=== PATIENT | female | born 1995 | race Caucasian/White ===

== ENCOUNTER 2018-09-26 20:44 | Emergency (ER) | payer BC, OTHER ==
--- NOTE | 2018-09-26 22:15 | EDM.PDOC ---
<Nicci Hall - Last Filed: 09/26/18 23:41> ED HPI GENERAL MEDICAL PROBLEM - General Chief Complaint: DEVOPS ENGINEER Problem Stated Complaint: PAIN 13 WKS FIVE DAYS Time Seen by Provider: 09/26/18 21:00 - History of Present Illness INITIAL COMMENTS - FREE TEXT/NARRATIVE: This is Dr. Hall dictating addendum note as I have assumed care of this case at 10:30 PM. I reviewed all lab tests which are all within normal limits as well as the pelvic ultrasound and the abdominal ultrasound. The pelvic ultrasound shows a live intrauterine at 13 weeks 4 days with a good heart rate of 151 and a small blas-gestational bleed. The patient has not had any vaginal bleeding but she is aware of these ultrasound findings and will be more aware of these symptoms. The abdominal ultrasound limited does not reveal any abnormalities of the gallbladder or the right upper quadrant. I discussed this case with Dr. Abdi at 2340pm and she agrees with symptomatic care. The patient said she had some indigestion so I gave her some IV Pepcid as well as some oral Tylenol for dull headache. On my reevaluation as I was discussing the imaging results and lab tests reveals a very nontender right upper quadrant with minimal tenderness on deep palpation and no tympany on percussion. The patient is aware that it contacted Dr. Abdi in that she will follow-up in their clinic as needed. Dr. Abdi is agreeable with this plan. - Related Data Allergies Allergy/AdvReac Type Severity Reaction Status Date / Time varicella virus vaccine live Allergy Rash Verified 09/26/18 21:00 Home Meds: Home Meds Docusate Sodium [Colace] 1 cap PO DAILY 09/26/18 [History] #103/Iron Fumarate/Fa [ ] 1 cap PO DAILY 09/26/18 [ History] ED ROS GENERAL - Review of Systems Review Of Systems: ROS reveals no pertinent complaints other than HPI. ED EXAM, GI/ABD - Physical Exam Exam: See Below Course - Vital Signs Last Recorded V/S: Last Vital Signs Temp 37.0 C 09/26/18 20:44 Pulse 78 09/26/18 23:14 Resp 17 09/26/18 23:14 BP 110/67 09/26/18 23:14 Pulse Ox 100 09/26/18 23:14 - Orders/Labs/Meds Labs: Laboratory Tests 09/26/18 09/26/18 09/26/18 Range/Units 21:28 21:28 21:28 WBC 11.93 H (4.0-11.0) K/uL RBC 3.75 L (4.30-5.90) M/uL Hgb 11.7 L (12.0-16.0) g/dL Hct 34.0 L (36.0-46.0) % MCV 90.7 (80.0-98.0) fL MCH 31.2 (27.0-32.0) pg MCHC 34.4 (31.0-37.0) g/dL RDW Std Deviation 43.7 (28.0-62.0) fl RDW Coeff of Olu 13 (11.0-15.0) % Plt Count 258 (150-400) K/uL MPV 10.00 (7.40-12.00) fL Neut % (Auto) 67.0 (48.0-80.0) % Lymph % (Auto) 26.4 (16.0-40.0) % [place]morton % (Auto) 5.4 (0.0-15.0) % Eos % (Auto) 1.0 (0.0-7.0) % Baso % (Auto) 0.2 (0.0-1.5) % Neut # (Auto) 8.0 H (1.4-5.7) K/uL Lymph # (Auto) 3.2 H (0.6-2.4) K/uL [place] # (Auto) 0.7 (0.0-0.8) K/uL Eos # (Auto) 0.1 (0.0-0.7) K/uL Baso # (Auto) 0.0 (0.0-0.1) K/uL Nucleated RBC % 0.0 /100WBC Nucleated RBCs # 0 K/uL Sodium 137 (136-145) mmol/L Potassium 3.4 L (3.5-5.1) mmol/L Chloride 104 (98-107) mmol/L Carbon Dioxide 20.3 L (21.0-32.0) mmol/L BUN 10 (7.0-18.0) mg/dL Creatinine 0.7 (0.6-1.0) mg/dL Est Cr Clr Drug Dosing 107.01 mL/min Estimated GFR (MDRD) > 60.0 ml/min Glucose 123 H (74-106) mg/dL Calcium 8.4 L (8.5-10.1) mg/dL Total Bilirubin 0.2 (0.2-1.0) mg/dL AST 8 L (15-37) IU/L ALT 12 L (14-63) IU/L Alkaline Phosphatase 34 L (46-116) U/L Total Protein 6.9 (6.4-8.2) g/dL Albumin 3.0 L (3.4-5.0) g/dL Globulin 3.9 (2.6-4.0) g/dL Albumin/Globulin Ratio 0.8 L (0.9-1.6) Lipase 99 (73-393) U/L HCG, Quant 07309.0 mIU/mL Urine Color Urine Appearance Urine pH (5.0-8.0) Ur Specific Rodessa (1.001-1.035) Urine Protein (NEGATIVE) mg/dL Urine Glucose (UA) (NEGATIVE) mg/dL Urine Ketones (NEGATIVE) mg/dL Urine Occult Blood (NEGATIVE) Urine Nitrite (NEGATIVE) Urine Bilirubin (NEGATIVE) Urine Urobilinogen (<2.0) EU/dL Ur Leukocyte Esterase (NEGATIVE) Urine HCG, Qual (NEGATIVE) 09/26/18 09/26/18 Range/Units 21:30 21:30 WBC (4.0-11.0) K/uL RBC (4.30-5.90) M/uL Hgb (12.0-16.0) g/dL Hct (36.0-46.0) % MCV (80.0-98.0) fL MCH (27.0-32.0) pg MCHC (31.0-37.0) g/dL RDW Std Deviation (28.0-62.0) fl RDW Coeff of Olu (11.0-15.0) % Plt Count (150-400) K/uL MPV (7.40-12.00) fL Neut % (Auto) (48.0-80.0) % Lymph % (Auto) (16.0-40.0) % [place]morton % (Auto) (0.0-15.0) % Eos % (Auto) (0.0-7.0) % Baso % (Auto) (0.0-1.5) % Neut # (Auto) (1.4-5.7) K/uL Lymph # (Auto) (0.6-2.4) K/uL Th[place]morton # (Auto) (0.0-0.8) K/uL Eos # (Auto) (0.0-0.7) K/uL Baso # (Auto) (0.0-0.1) K/uL Nucleated RBC % /100WBC Nucleated RBCs # K/uL Sodium (136-145) mmol/L Potassium (3.5-5.1) mmol/L Chloride (98-107) mmol/L Carbon Dioxide (21.0-32.0) mmol/L BUN (7.0-18.0) mg/dL Creatinine (0.6-1.0) mg/dL Est Cr Clr Drug Dosing mL/min Estimated GFR (MDRD) ml/min Glucose (74-106) mg/dL Calcium (8.5-10.1) mg/dL Total Bilirubin (0.2-1.0) mg/dL AST (15-37) IU/L ALT (14-63) IU/L Alkaline Phosphatase (46-116) U/L Total Protein (6.4-8.2) g/dL Albumin (3.4-5.0) g/dL Globulin (2.6-4.0) g/dL Albumin/Globulin Ratio (0.9-1.6) Lipase (73-393) U/L HCG, Quant mIU/mL Urine Color YELLOW Urine Appearance CLEAR Urine pH 7.5 (5.0-8.0) Ur Specific [place] 1.020 (1.001-1.035) Urine Protein NEGATIVE (NEGATIVE) mg/dL Urine Glucose (UA) NEGATIVE (NEGATIVE) mg/dL Urine Ketones NEGATIVE (NEGATIVE) mg/dL Urine Occult Blood NEGATIVE (NEGATIVE) Urine Nitrite NEGATIVE (NEGATIVE) Urine Bilirubin NEGATIVE (NEGATIVE) Urine Urobilinogen 0.2 (<2.0) EU/dL Ur Leukocyte Esterase NEGATIVE (NEGATIVE) Urine HCG, Qual POSITIVE (NEGATIVE) Meds: Medications Discontinued Medications Generic Name Dose Route Start Last Admin Trade Name Freq PRN Reason Stop Dose Admin Acetaminophen 650 mg 09/26/18 23:17 09/26/18 23:24 Tylenol PO 05/08/19 23:18 650 mg NOW ONE Administration Famotidine 20 mg 09/26/18 23:17 09/26/18 23:25 Pepcid IVPUSH 09/26/18 23:18 20 mg ONETIME ONE Administration Sodium Chloride 1,000 mls @ 999 mls/hr 09/26/18 21:01 09/26/18 22:27 Normal Saline IV 09/26/18 22:01 999 mls/hr BOLUS ONE Administration Departure - Departure Time of Disposition: 23:42 Disposition: Home, Self-Care 01 Condition: Good Clinical Impression: Second trimester , Right upper quadrant pain - Discharge Information Instructions: Abdominal Pain During , [id number], Second Trimester of , [id number] Referrals: PCP,None [Primary Care Provider] - Forms: ED Department Discharge Additional Instructions: The following information is given to patients seen in the emergency department who are being discharged to home. This information is to outline your options for follow-up care. We provide all patients seen in our emergency department with a follow-up referral. The need for follow-up, as well as the timing and circumstances, are variable depending upon the specifics of your emergency department visit. If you don't have a primary care physician on staff, we will provide you with a referral. We always advise you to contact your personal physician following an emergency department visit to inform them of the circumstance of the visit and for follow-up with them and/or the need for any referrals to a consulting specialist. The emergency department will also refer you to a specialist when appropriate. This referral assures that you have the opportunity for followup care with a specialist. All of these measure are taken in an effort to provide you with optimal care, which includes your followup. Under all circumstances we always encourage you to contact your private physician who remains a resource for coordinating your care. When calling for followup care, please make the office aware that this follow-up is from your recent emergency room visit. If for any reason you are refused follow-up, please contact the [facility] emergency department at and ask to speak to the emergency department charge nurse. [address] [address] ED low-fat diet and push hydration. Use [id number] Tylenol for pain management and please contact the clinic in the morning to schedule follow-up appointment as we discussed. Return to ER as needed and as discussed. Pelvic rest for the next 5-7 days for pelvic ultrasound findings as we discussed which currently are asymptomatic but which need to be followed in the clinic. <Thelma Goldsmith - Last Filed: 09/27/18 10:23> ED HPI GENERAL MEDICAL PROBLEM - General Source of Information: Reports: Patient History Limitations: Reports: No Limitations - History of Present Illness INITIAL COMMENTS - FREE TEXT/NARRATIVE: HISTORY AND PHYSICAL: History of present illness: Patient is a 23-year-old female presents to the ED today for concern of right upper quadrant pain 2 days. Patient rates her pain a 6-7 out of 10. Patient states the pain initially was coming and going but over the past 24 hours has been constant. Patient states she has taken Tylenol because she is without relief of symptoms. Patient states she is approximately 13 weeks gestation and is following along with [facility] with Dr. eric. Patient states she had called Dr. Eric's office today with told her to coming to the ED if symptoms were to persist. Patient states she's had a decrease in appetite and feels nauseous but has not vomited. Patient denies any cramping or vaginal discharge/bleeding. Patient denies fever, chills, chest pain, shortness of breath, or cough. Denies headache, neck stiff ness, change in vision, syncope, or near syncope. Denies diarrhea, constipation, or dysuria. Has not noted any blood in urine or stool. Patient has been eating and drinking appropriately prior to onset of symptoms. Review of systems: As per history of present illness and below otherwise all systems reviewed and negative. Past medical history: As per history of present illness and as reviewed below otherwise noncontributory. Surgical history: As per history of present illness and as reviewed below otherwise noncontributory. Social history: See social history for further information Family history: As per history of present illness and as reviewed below otherwise noncontributory. Physical exam: General: Patient is alert, oriented, and in no acute distress. Patient sitting comfortably on exam table. HEENT: Atraumatic, normocephalic, pupils equal and reactive bilaterally, negative for conjunctival pallor or scleral icterus, mucous membranes moist, TMs normal bilaterally, throat clear, neck supple, nontender, trachea midline. No drooling or trismus noted. No meningeal signs. No hot potato voice noted. Lungs: Clear to auscultation, breath sounds equal bilaterally, chest nontender. Heart: S1S2, regular rate and rhythm without overt murmur Abdomen: Severe pain to palpation of the right upper quadrant with guarding. Soft, nondistended. Negative for masses or hepatosplenomegaly. Negative for costovertebral tenderness. Pelvis: Stable nontender. Genitourinary: Deferred. Rectal: Deferred. Skin: Intact, warm, dry. No lesions or rashes noted. Extremities: Atraumatic, negative for cords or calf pain. Neurovascular unremarkable. Neuro: Awake, alert, oriented. Cranial nerves II through XII unremarkable. Cerebellum unremarkable. Motor and sensory unremarkable throughout. Exam nonfocal. Notes: Dr. Hall has assumed care of patient will follow all remaining diagnostics and disposition. Diagnostics: CBC, CMP, UA, urine hCG, hCG Quant, first trimester ultrasound, right upper quadrant ultrasound, lipase Therapeutics: Saline Prescription: Impression: RUQ pain First trimester Plan: Definitive disposition and diagnosis as appropriate pending reevaluation and review of above. 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 ED EXAM, GI/ABD - Physical Exam Exam: See Below (See dictation)
--- NOTE | 2018-09-26 22:26 | US ---
INDICATION: , abdominal pain TECHNIQUE: Ultrasound OB pelvis transabdominal. Real-time edmonds-scale imaging of the fetus was performed with static images saved for review. COMPARISON: None FINDINGS: Sonographic imaging demonstrates a single living intrauterine gestation. Fetus demonstrates a regular cardiac rate of 151 beats per minute. Fetus has a cephalic orientation. The placenta lies anterior. Hypoechoic collection adjacent to the placenta measuring 2.7 x 1.6 x 2.5 centimeters. Amniotic fluid volume appears normal. Cervix appears long and closed on transabdominal imaging. Clinical age is 13 weeks 4 days (CHAPIN 03/30/2019 based on LMP). The following biometric measurements were obtained: Biparietal diameter: 2.6 centimeters corresponding to 14 weeks 4 days. Head circumference: 9.1 centimeters corresponding to 14 weeks 1 day. Abdominal circumference: 7.4 centimeters corresponding to 13 weeks 6 days. Femur length: 1.1 centimeter corresponding to 13 weeks 3 days. The composite ultrasound gestational age is calculated at 14 weeks 0 days. The weight is estimated at 81 grams, the 39th percentile. Maternal right ovary measures 3.4 x 2.1 x 2.4 centimeters. Maternal left ovary measures 2.7 x 1.6 x 2.6 centimeters. Blood flow seen within both ovaries. IMPRESSION.: 1. Single live intrauterine gestation with a clinical age of 13 weeks 4 days which is within standard deviation of the sonographic age. 2. Perigestational bleed measuring 2.7 x 1.6 x 2.5 centimeters. Dictated by Bautista Dunn MD @ Sep 26 2018 10:19PM Signed by Dr. Bautista Dunn @ Sep 26 2018 10:25PM
[2018-09-26] MEDS: Sodium Chloride 0.9% 1,000 ML IV ONE (22:27)
[2018-09-26 22:31] LABS: CHLORIDE,CL 104 mmol/L (98-107); SODIUM,NA 137 mmol/L (136-145)
--- NOTE | 2018-09-26 23:04 | US ---
HISTORY: Abdominal pain for 1 day. COMPARISON: None available of this gestation. TECHNIQUE: Ultrasound examination of the is performed with transabdominal technique. FINDINGS: A single intrauterine gestation is seen in cephalic presentation with regular cardiac activity at 151 beats per minute. The placenta is anterior and is free of the cervical os. The placental grade is I and the amniotic fluid volume is normal. There is a small heterogeneous hypoechoic region located along the inferior left placenta consistent with a subchorionic hemorrhage, measuring 2.7 x 1.6 x 2.5 centimeters. BPD: 2.6 cm 14 weeks 4 days HC: 9.2 cm 14 weeks 1 day AC: 7.4 cm 13 weeks 6 days FL: 1.1 cm 13 weeks 3 days The estimated age by ultrasound is 14 weeks 0 days, with an estimated date of delivery of 03/27/2019. This correlates well with the clinical age of 13 weeks 4 days. The FL/AC ratio of 15.5 is below bottom normal at 20.0. The rest of the ultrasound ratios are normal. The estimated weight is 81 grams which is at the 39th percentile based on the clinical dates The fetus is too young to permit and anatomic survey. IMPRESSION: Single intrauterine gestation in cephalic presentation with regular cardiac activity. Estimated gestational age is 14 weeks 0 days. Possible small subchorionic hemorrhage located along the left inferior placenta. Dictated by Kevin King MD @ Sep 26 2018 10:57PM Signed by Dr. Kevin King @ Sep 26 2018 11:03PM
[2018-09-26 23:15] VITALS: BP 110/67
[2018-09-26] MEDS: Acetaminophen 325 MG Tab PO ONE (23:24)
[2018-09-26] MEDS: Famotidine 20 MG/2 ML SDV IVPUSH ONE (23:25)
== END 2018-09-26 23:59 | disposition home or self-care (01) ==
LOC: MW.ED 20:44
DX: O99.89 Other specified diseases and conditions complicating pregnancy, childbirth and the puerperium (principal); R10.11 Right upper quadrant pain; Z3A.13 13 weeks gestation of pregnancy; Z88.7 Allergy status to serum and vaccine
CPT/HCPCS: 36415; 76705; 76801; 80053; 81003; 81025; 83690; 84702; 85025; 96361; 96374; 99284; A9270; J3490; J7040

== ENCOUNTER 2019-03-22 07:17 | Inpatient (IN) | payer BC ==
[2019-03-22] MEDS ORDERED: Methylergonovine 0.2 MG/1 ML Amp IM PRN (17:32)
[2019-03-22] MEDS ORDERED: Lidocaine 1% 50 ML MDV INJECT PRN (17:32)
[2019-03-22] MEDS ORDERED: Ondansetron 4 MG/2 ML SDV IVPUSH PRN (17:32)
[2019-03-22] MEDS ORDERED: Sodium Chloride 0.9% 2.5 ML Syringe FLUSH PRN (17:32)
[2019-03-22] MEDS ORDERED: Sodium Chloride 0.9% 10 ML Syringe FLUSH PRN (17:32)
[2019-03-22] MEDS ORDERED: Nalbuphine 10 MG/1 ML Vial IVPUSH PRN (17:32)
[2019-03-22] MEDS ORDERED: Sodium Chloride 0.9% 10 ML SDV IV PRN (17:32)
[2019-03-22] MEDS ORDERED: Carboprost Tromethamine 250 MCG/1 ML Amp IM PRN (17:32)
[2019-03-22] MEDS ORDERED: Water For Irrigation,Sterile 1,000 ML Container IRR PRN (17:32)
[2019-03-22] MEDS ORDERED: Terbutaline 1 MG/ML SDV SUBCUT PRN (17:32)
[2019-03-22] MEDS ORDERED: Tranexamic Acid 1,000 MG in Sodium Chloride 0.9% 100 ML IV PRN (17:32)
[2019-03-22] MEDS ORDERED: Misoprostol 200 MCG Tab PO PRN (17:32)
[2019-03-22] MEDS ORDERED: Misoprostol 25 MCG (1/4 of 100 MCG) Tab VAG PRN ×2 (17:32)
[2019-03-22] MEDS ORDERED: Oxytocin/0.9 % Sodium Chloride 30 UNIT/500 ML BAG IV SCH ×2 (17:45)
[2019-03-22] MEDS: Lactated Ringers 1,000 ML IV SCH ×2 (18:15→23:50)
[2019-03-23] MEDS: Butorphanol 1 MG/ML SDV IVPUSH PRN ×3 (00:58→04:26)
[2019-03-23] MEDS ORDERED: Butorphanol 1 MG/ML SDV IVPUSH PRN (06:27)
[2019-03-23] MEDS: Lactated Ringers 1,000 ML IV SCH (06:31)
[2019-03-23] MEDS ORDERED: Acetaminophen/oxyCODONE 325-5 MG Tab ONE (07:30)
[2019-03-23] MEDS ORDERED: Lanolin 100% Cream 7 GM Tube TOP PRN (07:56)
[2019-03-23] MEDS ORDERED: Witch Hazel Medicated Pads 40/Jar TOP PRN (07:56)
[2019-03-23] MEDS ORDERED: oxyCODONE 5 MG Tab PO PRN (07:56)
[2019-03-23] MEDS ORDERED: Bisacodyl 10 MG Supp RECTAL PRN (07:56)
[2019-03-23] MEDS ORDERED: Benzocaine/Menthol 20%-0.5% Spray 78 GM Cannister TOP PRN (07:56)
--- NOTE | 2019-03-23 08:05 | PCM.OPNOTE ---
- General Post-Op/Procedure Note Date of Surgery/Procedure: 03/23/19 Operative Procedure(s): Spontaneous vaginal delivery. Repair of second degree perineal laceration Findings: Live female infant, Apgars 9/9, weight 3890g, cord gases pending Pre Op Diagnosis: 23yo at 39w0d with induction of labor. History of shoulder dystocia Post-Op Diagnosis: 23yo s/p spontaneous vaginal delivery. Second degree perineal laceration Anesthesia Technique: Other (see below) (IV Stadol) Primary Surgeon: Zakiya Jackson District Sales Coordinator: Catia Foss Pathology: Placenta, cord gases, cord blood EBL in mLs: 300 Complications: None Condition: Good
[2019-03-23] MEDS: Docusate Sodium 100 MG Cap PO PRN (08:54)
--- NOTE | 2019-03-23 09:25 | OR ---
SURGEON: Zakiya Jackson MD DATE OF PROCEDURE: 03/23/2019 PREOPERATIVE DIAGNOSES: 1. 23-year-old , at 39 weeks and 0 days gestation with induction of labor. 2. History of shoulder dystocia. POSTOPERATIVE DIAGNOSES: 1. 23-year-old , status post precipitous spontaneous vaginal delivery. 2. Second-degree perineal laceration. OPERATIVE PROCEDURE: 1. Precipitous spontaneous vaginal delivery. 2. Repair of second-degree perineal laceration. PRIMARY SURGEON: Zakiya Jackson M.D. PSYCHIATRIC RN: Catia Foss, medical student. ANESTHESIA: IV Stadol. FINDINGS: Live female in cephalic presentation. score 9 and 9 at 1 and 5 minutes respectively. Weight 3890 g. Nuchal cord x1. Cord gases pending. PATHOLOGY: Placenta, cord gases, cord blood. ESTIMATED BLOOD LOSS: 300 mL. COMPLICATIONS: None. DESCRIPTION OF PROCEDURE: The patient presented to Labor and Delivery at 38 weeks and 6 days' gestation for planned induction of labor due to history of shoulder dystocia and suspected ehgzv-igs-[id number]-age fetus. Induction of labor began with Cytotec. After 1 dose of Cytotec, the patient was nathan every 30 seconds to 2 minutes. The decision was made to begin Pitocin to continue induction of labor. The patient progressed to 5 to 6 cm, followed quickly by 8 cm. Spontaneous rupture of membranes occurred while the patient was sitting up on the toilet, clear fluid was noted. The fetus quickly delivered after spontaneous rupture of membranes. The patient progressed to complete cervical dilation without epidural. She delivered a live female infant, score 9 and 9 at 1 and 5 minutes respectively, weight 3890 g. The head was delivered followed by the remainder of body, without difficulty in delivering the shoulders. A nuchal cord x1 was reduced after delivery of the body. The infant was placed on the maternal abdomen. At this time, I presented to Labor and Delivery. I facilitated delivery of the placenta using the Pereyra-Bain maneuver. I inspected the perineum and a second-degree perineal laceration was noted. This was infiltrated with 1% lidocaine without epinephrine. This was then repaired with 3-0 Vicryl in a running fashion. The fundus was firm below the umbilicus. Scant bleeding was noted. The patient and baby tolerated the delivery well. EMIR / ZAKIA /[id number] WENDI
[2019-03-23] MEDS: Ibuprofen 800 MG Tab PO PRN ×2 (12:14→19:23)
[2019-03-23] MEDS: Acetaminophen 500 MG Tab PO PRN (16:04)
[2019-03-24] MEDS: Ibuprofen 800 MG Tab PO PRN (03:03)
[2019-03-24] MEDS: Docusate Sodium 100 MG Cap PO PRN (07:43)
[2019-03-24] MEDS: Acetaminophen 500 MG Tab PO PRN (07:43)
--- NOTE | 2019-03-24 08:36 | PCM.PNPP ---
- General Info Date of Service: 03/24/19 Admission Dx/Problem (Free Text): Patient without complaints this morning. Functional Status: Reports: Pain Controlled, Tolerating Diet, Ambulating, Urinating - Review of Systems General: Reports: No Symptoms HEENT: Reports: No Symptoms Pulmonary: Reports: No Symptoms Cardiovascular: Reports: No Symptoms Gastrointestinal: Reports: No Symptoms Genitourinary: Reports: No Symptoms Musculoskeletal: Reports: No Symptoms Skin: Reports: No Symptoms Neurological: Reports: No Symptoms Psychiatric: Reports: No Symptoms - Patient Data Vital Signs - Most Recent: Last Vital Signs Temp 36.7 C 03/24/19 03:09 Pulse 64 03/24/19 03:09 Resp 16 03/24/19 03:09 BP 118/73 03/24/19 03:09 Pulse Ox 99 03/24/19 03:09 Weight - Most Recent: 87.09 kg Lab Results - Last 24 Hours: Laboratory Results - last 24 hr 03/24/19 Range/Units 07:21 Hgb 10.7 L (12.0-16.0) g/dL Hct 33.3 L (36.0-46.0) % Med Orders - Current: Current Medications Acetaminophen (Tylenol Extra Strength) 1,000 mg PO Q6H PRN PRN Reason: Pain Last Admin: 03/24/19 07:43 Dose: 1,000 mg Benzocaine/Menthol (Dermoplast Pain Relief 20%-0.5% Brixey) 78 gm TOP ASDIRECTED PRN PRN Reason: Perineal Comfort Measure Last Admin: 03/23/19 08:55 Dose: 1 can Bisacodyl (Dulcolax) 10 mg RECTAL ONETIME PRN PRN Reason: Constipation Butorphanol Tartrate (Stadol) 1 mg IVPUSH Q1H PRN PRN Reason: Pain Last Admin: 03/23/19 04:26 Dose: 1 mg Butorphanol Tartrate (Stadol) 1 mg IVPUSH Q1H PRN PRN Reason: Pain Last Admin: 03/23/19 06:39 Dose: 1 mg Carboprost Tromethamine (Hemabate Ds) 250 mcg IM ASDIRECTED PRN PRN Reason: Post Hemorrhage Docusate Sodium (Colace) 100 mg PO BID PRN PRN Reason: Constipation Last Admin: 03/24/19 07:43 Dose: 100 mg Emollient Ointment (Lansinoh Hpa) 0 gm TOP ASDIRECTED PRN PRN Reason: Sore Nipples Last Admin: 03/23/19 08:54 Dose: 7 gram Lactated Ringer's (Ringers, Lactated) 1,000 mls @ 150 mls/hr IV ASDIRECTED MACK Last Admin: 03/23/19 06:31 Dose: 150 mls/hr Oxytocin/Sodium Chloride (Oxytocin 30 Unit/500 Ml-Ns) 30 unit in 500 mls @ 999 mls/hr IV TITRATE MACK Oxytocin/Sodium Chloride (Oxytocin 30 Unit/500 Ml-Ns) 30 unit in 500 mls @ 2 mls/hr IV TITRATE MACK; Protocol Last Titration: 03/23/19 05:40 Dose: 6 munits/min, 6 mls/hr Tranexamic Acid 1,000 mg/ (Sodium Chloride) 110 mls @ 660 mls/hr IV ONETIME PRN PRN Reason: Bleeding Ibuprofen (Motrin) 800 mg PO Q8H PRN PRN Reason: Pain Last Admin: 03/24/19 03:03 Dose: 800 mg Lidocaine HCl (Xylocaine 1%) 50 ml INJECT ONETIME PRN PRN Reason: Laceration repair Last Admin: 03/23/19 07:39 Dose: 50 ml Methylergonovine Maleate (Methergine) 0.2 mg IM ASDIRECTED PRN PRN Reason: Post Hemorrhage Misoprostol (Cytotec) 200 mcg PO ONETIME PRN PRN Reason: Post Hemorrhage Misoprostol (Cytotec) 25 mcg VAG ONETIME PRN PRN Reason: Cervical Ripening Last Admin: 03/22/19 18:23 Dose: 25 mcg Misoprostol (Cytotec) 25 mcg VAG Q4H PRN PRN Reason: Cervical Ripening Nalbuphine HCl (Nubain) 10 mg IVPUSH Q1H PRN PRN Reason: Pain (severe 7-10) Ondansetron HCl (Zofran) 4 mg IVPUSH Q4H PRN PRN Reason: Nausea/Vomiting Oxycodone HCl (Oxycodone) 5 mg PO Q2H PRN PRN Reason: Pain Sodium Chloride (Saline Flush) 10 ml FLUSH ASDIRECTED PRN PRN Reason: Keep Vein Open Sodium Chloride (Saline Flush) 2.5 ml FLUSH ASDIRECTED PRN PRN Reason: Keep Vein Open Sodium Chloride (Normal Saline) 10 ml IV ASDIRECTED PRN PRN Reason: IV Use Sterile Water (Sterile Water For Irrigation) 1,000 ml IRR ASDIRECTED PRN PRN Reason: delivery Last Admin: 03/23/19 07:39 Dose: 1,000 ml Terbutaline Sulfate (Brethine) 0.25 mg SUBCUT ASDIRECTED PRN PRN Reason: Tacysystole Witch Carolyn (Tucks) 1 pad TOP ASDIRECTED PRN PRN Reason: comfort care Last Admin: 03/23/19 08:54 Dose: 1 tub Discontinued Medications Oxycodone/Acetaminophen (Percocet 325-5 Mg) Confirm Administered Dose 2 tab .ROUTE .STK-MED ONE Stop: 03/23/19 07:31 Last Admin: 03/23/19 07:37 Dose: 2 tab - Infant Interaction Disposition, : [place] in Room with Family Infant Interaction: Holding Feeding: Attempted ; Nursed Fair/Poor Support Person: Significant Other - Recovery Exam Fundal Tone: Firm Fundal Level: At Umbilicus Fundal Placement: Midline Lochia Amount: Small Lochia Color: Rubra/Red Bladder Status: Voiding - Exam General: Alert, Oriented Neck: Supple Lungs: Clear to Auscultation, Normal Respiratory Effort Cardiovascular: Regular Rate, Regular Rhythm GI/Abdominal Exam: Soft, Non-Tender Extremities: Normal Inspection, No Pedal Edema Skin: Warm, Dry, Intact Neurological: No New Focal Deficit Psy/Mental Status: Alert, Normal Affect, Normal Mood - Problem List & Annotations (1) Vaginal delivery SNOMED Code(s): 330047762 Code(s): O80 - ENCOUNTER FOR FULL-TERM UNCOMPLICATED DELIVERY Status: Acute Current Visit: No - Problem List Review Problem List Initiated/Reviewed/Updated: Yes - My Orders Last 24 Hours: My Active Orders 03/24/19 08:31 Ready for Discharge [RC] PER UNIT ROUTINE - Assessment Assessment:: 23yo s/p spontaneous vaginal delivery, PPD#1 - Plan Plan:: Patient doing well, desires discharge home today. Reviewed discharge instructions. Follow-up in 6 weeks at visit.
[2019-03-24 09:09] VITALS: BP 119/73; PULSE 71
== END 2019-03-24 11:06 | disposition home or self-care (01) | DRG 560 ==
LOC: MW.OB 07:17 → OBSVTOIN 03-23 07:17 → MW.OB 03-23 23:53
PROVIDERS: ADMIT Obstetrics & Gynecology; ATTEND Obstetrics & Gynecology
PROC: 10E0XZZ Delivery of Products of Conception, External Approach (ICD-10-PCS; principal; 2019-03-23)
PROC: 3E0P7VZ Introduction of Hormone into Female Reproductive, Via Natural or Artificial Opening (ICD-10-PCS; 2019-03-23)
PROC: 0KQM0ZZ Repair Perineum Muscle, Open Approach (ICD-10-PCS; 2019-03-23)
PROC: 3E033VJ Introduction of Other Hormone into Peripheral Vein, Percutaneous Approach (ICD-10-PCS; 2019-03-23)
DX: O62.3 Precipitate labor (principal); O69.81X0 Labor and delivery complicated by cord around neck, without compression, not applicable or unspecified; O70.1 Second degree perineal laceration during delivery; Z3A.38 38 weeks gestation of pregnancy; Z37.0 Single live birth
CPT/HCPCS: 36415; 59025; 59409; 82803; 85014; 85018; 85027; 86593; 86850; 86900; 86901; A9270-GY; J0595; J2001; J2590; J7120

== ENCOUNTER 2020-11-13 20:36 | Emergency (ER) | payer BC ==
--- NOTE | 2020-11-13 21:10 | PCM.SN.2 ---
- Free Text/Narrative Note: EKG performed at 2053 hrs. sinus tachycardia heart rate 103 CO 148 QT duration 436 [place] 63 QRS is late transition to R wave. Normal biatrial enlargement on the P wave. No prior for comparison. Impression no obvious injury.
[2020-11-13] MEDS ORDERED: Sodium Chloride 0.9% 1,000 ML IV ONE (21:13)
[2020-11-13] MEDS ORDERED: Sodium Chloride 0.9% 500 ML IV SCH (21:15)
--- NOTE | 2020-11-13 21:26 | EDM.PDOC ---
ED HPI GENERAL MEDICAL PROBLEM - General Chief Complaint: Syncope Stated Complaint: LIGHT HEADED, FEELS LIKE SHE'S GOING TO PASS OUT Time Seen by Provider: 11/13/20 21:04 Source of Information: Reports: Patient History Limitations: Reports: No Limitations - History of Present Illness INITIAL COMMENTS - FREE TEXT/NARRATIVE: HISTORY AND PHYSICAL: History of present illness: Patient is a 25-year-old female who presents emergency room today with concern of near syncope that [place]. Patient states that she was chasing around her young child and when she bent over and stand up, states that she started feeling dizzy and lightheaded. Patient states that she sat down and ate food but did not have any improvement of symptoms. Patient states that she walked to the car with her children and drove here but states that the entire time she was lightheaded and states that she may be should not have drove. Patient states that currently she is feeling lightheaded and like she might pass out which is worse with sitting up or standing and improved with laying down. Patient denies complete syncope or head injury or loss of consciousness. Patient states that she was not riding any rides at the fair and had not been doing anything out of the ordinary. Patient does express nausea associated with the near syncope sensation. Patient denies any health history. Patient states she does have an IUD so does not believe to be . Patient denies fever, chills, chest pain, shortness of breath, or cough. Denies headache, neck stiff ness, change in vision, syncope. Denies vomiting, abdominal pain, diarrhea, constipation, or dysuria. Has not noted any blood in urine or stool. Patient has been eating and drinking appropriately. Review of systems: As per history of present illness and below otherwise all systems reviewed and negative. Past medical history: As per history of present illness and as reviewed below otherwise noncontributory. Surgical history: As per history of present illness and as reviewed below otherwise noncontributory. Social history: See social history for further information Family history: As per history of present illness and as reviewed below otherwise noncontributory. Physical exam: General: Patient is alert, oriented, and in no acute distress. Patient laying comfortably on exam table. Patient is noted to be tachycardic 112's on exam, otherwise vitally stable and reviewed by me. CHAKA: Atraumatic, normocephalic, pupils equal and reactive bilaterally, negative for conjunctival pallor or scleral icterus, mucous membranes moist, TMs normal bilaterally, throat clear, neck supple, nontender, trachea midline. No drooling or trismus noted. No meningeal signs. No hot potato voice noted. Lungs: Clear to auscultation, breath sounds equal bilaterally, chest nontender. Heart: S1S2, regular rate and rhythm without overt murmur Abdomen: Soft, nondistended, nontender. Negative for masses or hepatosplenomegaly. Negative for costovertebral tenderness. Pelvis: Stable nontender. Genitourinary: Deferred. Rectal: Deferred. Skin: Intact, warm, dry. No lesions or rashes noted. Extremities: Atraumatic, negative for cords or calf pain. Neurovascular unremarkable. Neuro: Awake, alert, oriented. Cranial nerves II through XII unremarkable. Cerebellum unremarkable. Motor and sensory unremarkable throughout. Exam nonfocal. Notes: Patient is a 25-year-old, otherwise healthy female, who presents to the ED today with concern of near syncope that started just prior to travel [place]. Upon arrival to the ED, patient is noted to be tachycardic 112's on exam, otherwise is vitally stable. When patient does sit up, her heart rate does go to 130s to 140s and expresses worsening of her near-syncope symptoms. Will obtain IV access and initiate a 20 cc/kg bolus of fluids, and obtain cardiac evaluation. See Dr. Garcia dictation for specific EKG interpretation. However, sinus tachycardia with a rate of 103 without signs of STEMI or ischemic changes. Mild derangements of CBC unremarkable. CMP shows a mild elevation of creatinine at 1.1 and a mild elevation of BUN at 19, otherwise mild derangements of CMP unremarkable. hCG negative. Troponin negative. Urinalysis is clear. Dr. Garcia has assumed care of patient and will follow remaining diagnostics including chest x-ray and reevaluation of patient and disposition. Diagnostics: EKG, CBC, CMP, UA, serum hCG, chest x-ray, troponin, orthostatic vitals Therapeutics: NS Prescription: Impression: Near syncope Dehydration Plan: Definitive disposition and diagnosis as appropriate pending reevaluation and review of above. - Related Data Allergies Allergy/AdvReac Type Severity Reaction Status Date / Time varicella virus vaccine live Allergy Rash Verified 11/13/20 20:55 Home Meds: Home Meds #103/Iron Fumarate/Fa [ ] 1 cap PO DAILY 09/26/18 [History] Ascorbate Calcium [Vitamin C] 1 tab PO DAILY 02/06/19 [History] Ergocalciferol (Vitamin D2) [Ergocalciferol] 0.5 applicful ASDIRECTED 02/06/19 [History] buPROPion HCL [Wellbutrin Xl] 1 tab PO DAILY 02/06/19 [History] Past Medical History - Past Health History Medical/Surgical History: Denies Medical/Surgical History HEENT History: Reports: None Cardiovascular History: Reports: None Respiratory History: Reports: Asthma Other Respiratory History: sports induced asthma in high school Gastrointestinal History: Reports: None Genitourinary History: Reports: [employer] History: Reports: Musculoskeletal History: Reports: None Neurological History: Reports: None Psychiatric History: Reports: Depression Endocrine/Metabolic History: Reports: None Hematologic History: Reports: None Immunologic History: Reports: None Oncologic (Cancer) History: Reports: None Dermatologic History: Reports: None - Infectious Disease History Infectious Disease History: Reports: None - Past Surgical History Head Surgeries/Procedures: Reports: None HEENT Surgical History: Reports: Oral Surgery Other HEENT Surgeries/Procedures: 2012 wisdom teeth Social & Family History - Family History Family Medical History: No Pertinent Family History - Tobacco Use Tobacco Use Status *Q: Never Tobacco User Second Hand Smoke Exposure: No - Caffeine Use Caffeine Use: Reports: None - Recreational Drug Use Recreational Drug Use: No ED ROS GENERAL - Review of Systems Review Of Systems: Comprehensive ROS is negative, except as noted in HPI. ED EXAM, GENERAL - Physical Exam Exam: See Below (see dictation) Course - Vital Signs Last Recorded V/S: Last Vital Signs Temp 98.1 F 11/14/20 00:34 Pulse 88 11/14/20 00:34 Resp 18 11/14/20 00:34 BP 111/65 11/14/20 00:34 Pulse Ox 98 11/14/20 00:34 Orthostatic Blood Pressure [ 123/78 Standing] Orthostatic Blood Pressure [ 123/78 Sitting] Orthostatic Blood Pressure [ 114/70 Supine] - Orders/Labs/Meds Labs: Laboratory Tests 11/13/20 11/13/20 11/13/20 Range/Units 20:50 20:50 20:50 WBC 9.27 (4.0-11.0) K/uL RBC 4.53 (4.30-5.90) M/uL Hgb 14.4 (12.0-16.0) g/dL Hct 41.4 (36.0-46.0) % MCV 91.4 (80.0-98.0) fL MCH 31.8 (27.0-32.0) pg MCHC 34.8 (31.0-37.0) g/dL RDW Std Deviation 42.7 (28.0-62.0) fl RDW Coeff of Olu 13 (11.0-15.0) % Plt Count 238 (150-400) K/uL MPV 10.20 (7.40-12.00) fL Neut % (Auto) 82.8 H (48.0-80.0) % Lymph % (Auto) 9.9 L (16.0-40.0) % [place] % (Auto) 6.8 (0.0-15.0) % Eos % (Auto) 0.4 (0.0-7.0) % Baso % (Auto) 0.1 (0.0-1.5) % Neut # (Auto) 7.7 H (1.4-5.7) K/uL Lymph # (Auto) 0.9 (0.6-2.4) K/uL [place] # (Auto) 0.6 (0.0-0.8) K/uL Eos # (Auto) 0.0 (0.0-0.7) K/uL Baso # (Auto) 0.0 (0.0-0.1) K/uL Sodium 138 (136-145) mmol/L Potassium 3.5 (3.5-5.1) mmol/L Chloride 102 (98-107) mmol/L Carbon Dioxide 23.6 (21.0-32.0) mmol/L BUN 19 H (7.0-18.0) mg/dL Creatinine 1.1 H (0.6-1.0) mg/dL Est Cr Clr Drug Dosing 66.92 mL/min Estimated GFR (MDRD) > 60.0 ml/min Glucose 106 (74-106) mg/dL Calcium 8.6 (8.5-10.1) mg/dL Total Bilirubin 0.3 (0.2-1.0) mg/dL AST 13 L (15-37) IU/L ALT 24 (14-63) IU/L Alkaline Phosphatase 65 (46-116) U/L Troponin I < 0.050 (0.000-0.056) ng/mL Total Protein 8.2 (6.4-8.2) g/dL Albumin 4.0 (3.4-5.0) g/dL Globulin 4.2 H (2.6-4.0) g/dL Albumin/Globulin Ratio 1.0 (0.9-1.6) HCG, Qual NEGATIVE (NEG) Urine Color Urine Appearance Urine pH (5.0-8.0) Ur Specific Challenge (1.001-1.035) Urine Protein (NEGATIVE) mg/dL Urine Glucose (UA) (NEGATIVE) mg/dL Urine Ketones (NEGATIVE) mg/dL Urine Occult Blood (NEGATIVE) Urine Nitrite (NEGATIVE) Urine Bilirubin (NEGATIVE) Urine Urobilinogen (<2.0) EU/dL Ur Leukocyte Esterase (NEGATIVE) 11/13/20 Range/Units 21:29 WBC (4.0-11.0) K/uL RBC (4.30-5.90) M/uL Hgb (12.0-16.0) g/dL Hct (36.0-46.0) % MCV (80.0-98.0) fL MCH (27.0-32.0) pg MCHC (31.0-37.0) g/dL RDW Std Deviation (28.0-62.0) fl RDW Coeff of Olu (11.0-15.0) % Plt Count (150-400) K/uL MPV (7.40-12.00) fL Neut % (Auto) (48.0-80.0) % Lymph % (Auto) (16.0-40.0) % [place] % (Auto) (0.0-15.0) % Eos % (Auto) (0.0-7.0) % Baso % (Auto) (0.0-1.5) % Neut # (Auto) (1.4-5.7) K/uL Lymph # (Auto) (0.6-2.4) K/uL [place] # (Auto) (0.0-0.8) K/uL Eos # (Auto) (0.0-0.7) K/uL Baso # (Auto) (0.0-0.1) K/uL Sodium (136-145) mmol/L Potassium (3.5-5.1) mmol/L Chloride (98-107) mmol/L Carbon Dioxide (21.0-32.0) mmol/L BUN (7.0-18.0) mg/dL Creatinine (0.6-1.0) mg/dL Est Cr Clr Drug Dosing mL/min Estimated GFR (MDRD) ml/min Glucose (74-106) mg/dL Calcium (8.5-10.1) mg/dL Total Bilirubin (0.2-1.0) mg/dL AST (15-37) IU/L ALT (14-63) IU/L Alkaline Phosphatase (46-116) U/L Troponin I (0.000-0.056) ng/mL Total Protein (6.4-8.2) g/dL Albumin (3.4-5.0) g/dL Globulin (2.6-4.0) g/dL Albumin/Globulin Ratio (0.9-1.6) HCG, Qual (NEG) Urine Color YELLOW Urine Appearance CLEAR Urine pH 6.0 (5.0-8.0) Ur Specific Challenge 1.025 (1.001-1.035) Urine Protein NEGATIVE (NEGATIVE) mg/dL Urine Glucose (UA) NEGATIVE (NEGATIVE) mg/dL Urine Ketones NEGATIVE (NEGATIVE) mg/dL Urine Occult Blood NEGATIVE (NEGATIVE) Urine Nitrite NEGATIVE (NEGATIVE) Urine Bilirubin NEGATIVE (NEGATIVE) Urine Urobilinogen 0.2 (<2.0) EU/dL Ur Leukocyte Esterase NEGATIVE (NEGATIVE) Meds: Medications Discontinued Medications Generic Name Dose Route Start Last Admin Trade Name Freq PRN Reason Stop Dose Admin Diazepam 2.5 mg 11/13/20 23:28 11/13/20 23:32 Diazepam 2 Mg Tab PO 11/13/20 23:29 2.5 mg ONETIME ONE Administration Sodium Chloride 1,000 mls @ 999 mls/hr 11/13/20 21:13 11/13/20 21:38 Normal Saline IV 11/13/20 22:13 999 mls/hr BOLUS ONE Administration Sodium Chloride 500 mls @ 300 mls/hr 11/13/20 21:15 11/13/20 22:57 Normal Saline IV 300 mls/hr STAT MACK Administration Ketorolac Tromethamine 15 mg 11/13/20 23:27 11/13/20 23:33 Ketorolac 30 Mg/Ml Sdv IVPUSH 11/13/20 23:28 15 mg ONETIME ONE Administration Departure - Departure Time of Disposition: 10:03 Disposition: Home, Self-Care 01 Clinical Impression: Dehydration, Orthostasis, Muscle contraction headache Back pain Qualifiers: Back pain location: low back pain Chronicity: acute Back pain laterality: unspecified Sciatica presence: without sciatica Qualified Code(s): M54.5 - Low back pain - Discharge Information Instructions: Orthostatic Hypotension, Acute Back Pain, Adult, Dehydration, Adult, [id number], General Headache Without Cause, [id number] Referrals: Moncho Michelle [Primary Care Provider] - Forms: ED Department Discharge Additional Instructions: [facility] - Primary Care [address] [place] [address] [place] [address] The following information is given to patients seen in the emergency department who are being discharged to home. This information is to outline your options for follow-up care. We provide all patients seen in our emergency department with a follow-up referral. The need for follow-up, as well as the timing and circumstances, are variable depending upon the specifics of your emergency department visit. If you don't have a primary care physician on staff, we will provide you with a referral. We always advise you to contact your personal physician following an emergency department visit to inform them of the circumstance of the visit and for follow-up with them and/or the need for any referrals to a consulting specialist. The emergency department will also refer you to a specialist when appropriate. This referral assures that you have the opportunity for follow-up care with a specialist. All of these measure are taken in an effort to provide you with optimal care, which includes your follow-up. Under all circumstances we always encourage you to contact your private physician who remains a resource for coordinating your care. When calling for follow-up care, please make the office aware that this follow-up is from your recent emergency room visit. If for any reason you are refused follow-up, please contact the [facility] Emergency Department at and asked to speak to the emergency department charge nurse. Sepsis Event Note (ED) - Evaluation Sepsis Screening Result: No Definite Risk - Focused Exam Vital Signs: Vital Signs Temp Pulse Resp BP Pulse Ox 11/14/20 00:34 98.1 F 88 18 111/65 98 11/13/20 23:17 98 18 104/62 98 11/13/20 22:30 102 H 20 103/72 98
[2020-11-13 21:35] LABS: BLOOD UREA NITROGEN,BUN 19 mg/dL (7.0-18.0); CARBON DIOXIDE,CO2 23.6 mmol/L (21.0-32.0); CHLORIDE,CL 102 mmol/L (98-107); GLUCOSE RANDOM 106 mg/dL (74-106); POTASSIUM,K 3.5 mmol/L (3.5-5.1); SODIUM,NA 138 mmol/L (136-145)
--- NOTE | 2020-11-13 22:11 | CR ---
INDICATION: Near syncope TECHNIQUE: Chest radiograph 1 view COMPARISON: 09/03/2009 FINDINGS: Mediastinum: The mediastinum is normal in appearance. New mild cardiac enlargement is present which may be accentuated by the portable technique. Lung: Both lungs are unremarkable in appearance. No sign of pleural effusion seen. No pneumothorax is identified. Bone and Soft tissue: Unremarkable for age. IMPRESSION: 1. New mild cardiac enlargement is present which may be accentuated by the portable technique. Dictated by Walter Chin MD @ 11/13/2020 10:09:16 PM Dictated by: Walter Chin MD @ 11/13/2020 22:09:19 (Electronically Signed)
[2020-11-13] MEDS ORDERED: Ketorolac 30 MG/ML SDV IVPUSH ONE (23:27)
[2020-11-13] MEDS ORDERED: Diazepam 2 MG Tab PO ONE (23:28)
--- NOTE | 2020-11-13 23:34 | EDM.PDOC ---
ED HPI GENERAL MEDICAL PROBLEM - General Chief Complaint: Syncope Stated Complaint: LIGHT HEADED, FEELS LIKE SHE'S GOING TO PASS OUT Time Seen by Provider: 11/13/20 21:04 Source of Information: Reports: Patient History Limitations: Reports: No Limitations - History of Present Illness INITIAL COMMENTS - FREE TEXT/NARRATIVE: HISTORY AND PHYSICAL: History of present illness: Patient is a 25-year-old female who presents emergency room today with concern of near syncope that [place]. Patient states that she was chasing around her young child and when she bent over and stand up, states that she started feeling dizzy and lightheaded. Patient states that she sat down and ate food but did not have any improvement of symptoms. Patient states that she walked to the car with her children and drove here but states that the entire time she was lightheaded and states that she may be should not have drove. Patient states that currently she is feeling lightheaded and like she might pass out which is worse with sitting up or standing and improved with laying down. Patient denies complete syncope or head injury or loss of consciousness. Patient states that she was not riding any rides at the fair and had not been doing anything out of the ordinary. Patient does express nausea associated with the near syncope sensation. Patient denies any health history. Patient states she does have an IUD so does not believe to be . Patient denies fever, chills, chest pain, shortness of breath, or cough. Denies headache, neck stiff ness, change in vision, syncope. Denies vomiting, abdominal pain, diarrhea, constipation, or dysuria. Has not noted any blood in urine or stool. Patient has been eating and drinking appropriately. Review of systems: As per history of present illness and below otherwise all systems reviewed and negative. Past medical history: As per history of present illness and as reviewed below otherwise noncontributory. Surgical history: As per history of present illness and as reviewed below otherwise noncontributory. Social history: See social history for further information Family history: As per history of present illness and as reviewed below otherwise noncontributory. Physical exam: General: Patient is alert, oriented, and in no acute distress. Patient laying comfortably on exam table. Patient is noted to be tachycardic 112's on exam, otherwise vitally stable and reviewed by me. CHAKA: Atraumatic, normocephalic, pupils equal and reactive bilaterally, negative for conjunctival pallor or scleral icterus, mucous membranes moist, TMs normal bilaterally, throat clear, neck supple, nontender, trachea midline. No drooling or trismus noted. No meningeal signs. No hot potato voice noted. Lungs: Clear to auscultation, breath sounds equal bilaterally, chest nontender. Heart: S1S2, regular rate and rhythm without overt murmur Abdomen: Soft, nondistended, nontender. Negative for masses or hepatosplenomegaly. Negative for costovertebral tenderness. Pelvis: Stable nontender. Genitourinary: Deferred. Rectal: Deferred. Skin: Intact, warm, dry. No lesions or rashes noted. Extremities: Atraumatic, negative for cords or calf pain. Neurovascular unremarkable. Neuro: Awake, alert, oriented. Cranial nerves II through XII unremarkable. Cerebellum unremarkable. Motor and sensory unremarkable throughout. Exam nonfocal. Notes: Patient is a 25-year-old, otherwise healthy female, who presents to the ED today with concern of near syncope that started just prior to travel [place]. Upon arrival to the ED, patient is noted to be tachycardic 112's on exam, otherwise is vitally stable. When patient does sit up, her heart rate does go to 130s to 140s and expresses worsening of her near-syncope symptoms. Will obtain IV access and initiate a 20 cc/kg bolus of fluids, and obtain cardiac evaluation. See Dr. Garcia dictation for specific EKG interpretation. However, sinus tachycardia with a rate of 103 without signs of STEMI or ischemic changes. Dr. Garcia has assumed care of patient and will follow remaining diagnostics and disposition Diagnostics: EKG, CBC, CMP, UA, serum hCG, chest x-ray, troponin, orthostatic vitals Therapeutics: NS Prescription: Impression: Near syncope Plan: Definitive disposition and diagnosis as appropriate pending reevaluation and review of above. [id number] the patient was turned over to me by the advanced practice practitioner. The patient has while in the emergency department developed a moderately severe headache that is all around the bifrontal area. She also has back pain in both lower thoracic and upper lumbar back in the paraspinous area bilaterally. She describes this is kidney pain. The patient has negative Brudzinski and Kernig sign and normal neurologic exam. She is not febrile. She is under a lot of stress according to the . I feel like she has muscle contraction headache. I will try therapy and if it works the patient can probably be discharged. Her dizziness is gone after hydration indicating she was dehydrated. - Related Data Allergies Allergy/AdvReac Type Severity Reaction Status Date / Time varicella virus vaccine live Allergy Rash Verified 11/13/20 20:55 Home Meds: Home Meds #103/Iron Fumarate/Fa [ ] 1 cap PO DAILY 09/26/18 [History] Ascorbate Calcium [Vitamin C] 1 tab PO DAILY 02/06/19 [History] Ergocalciferol (Vitamin D2) [Ergocalciferol] 0.5 applicful ASDIRECTED 02/06/19 [History] buPROPion HCL [Wellbutrin Xl] 1 tab PO DAILY 02/06/19 [History] Past Medical History - Past Health History Medical/Surgical History: Denies Medical/Surgical History HEENT History: Reports: None Cardiovascular History: Reports: None Respiratory History: Reports: Asthma Other Respiratory History: sports induced asthma in high school Gastrointestinal History: Reports: None Genitourinary History: Reports: STD ARTISAN PLASTERER History: Reports: Musculoskeletal History: Reports: None Neurological History: Reports: None Psychiatric History: Reports: Depression Endocrine/Metabolic History: Reports: None Hematologic History: Reports: None Immunologic History: Reports: None Oncologic (Cancer) History: Reports: None Dermatologic History: Reports: None - Infectious Disease History Infectious Disease History: Reports: None - Past Surgical History Head Surgeries/Procedures: Reports: None HEENT Surgical History: Reports: Oral Surgery Other HEENT Surgeries/Procedures: 2012 wisdom teeth Social & Family History - Family History Family Medical History: No Pertinent Family History - Tobacco Use Tobacco Use Status *Q: Never Tobacco User Second Hand Smoke Exposure: No - Caffeine Use Caffeine Use: Reports: None - Recreational Drug Use Recreational Drug Use: No ED ROS GENERAL - Review of Systems Review Of Systems: Comprehensive ROS is negative, except as noted in HPI. ED EXAM, GENERAL - Physical Exam Exam: See Below Free Text/Narrative:: HISTORY AND PHYSICAL: History of present illness: Patient is a 25-year-old female who presents emergency room today with concern of near syncope that [place]. Patient states that she was chasing around her young child and when she bent over and stand up, states that she started feeling dizzy and lightheaded. Patient states that she sat down and ate food but did not have any improvement of symptoms. Patient states that she walked to the car with her children and drove here but states that the entire time she was lightheaded and states that she may be should not have drove. Patient states that currently she is feeling lightheaded and like she might pass out which is worse with sitting up or standing and improved with laying down. Patient denies complete syncope or head injury or loss of consciousness. Patient states that she was not riding any rides at the fair and had not been doing anything out of the ordinary. Patient does express nausea associated with the near syncope sensation. Patient denies any health history. Patient states she does have an IUD so does not believe to be . Patient denies fever, chills, chest pain, shortness of breath, or cough. Denies headache, neck stiff ness, change in vision, syncope. Denies vomiting, abdominal pain, diarrhea, constipation, or dysuria. Has not noted any blood in urine or stool. Patient has been eating and drinking appropriately. Review of systems: As per history of present illness and below otherwise all systems reviewed and negative. Past medical history: As per history of present illness and as reviewed below otherwise noncontributory. Surgical history: As per history of present illness and as reviewed below otherwise non contributory. Social history: See social history for further information Family history: As per history of present illness and as reviewed below otherwise noncontributory. Physical exam: General: Patient is alert, oriented, and in no acute distress. Patient laying comfortably on exam table. Patient is noted to be tachycardic 112's on exam, otherwise vitally stable and reviewed by me. HEENT: Atraumatic, normocephalic, pupils equal and reactive bilaterally, negative for conjunctival pallor or scleral icterus, mucous membranes moist, TMs normal bilaterally, throat clear, neck supple, nontender, trachea midline. No drooling or trismus noted. No meningeal signs. No hot potato voice noted. Lungs: Clear to auscultation, breath sounds equal bilaterally, chest nontender. Heart: S1S2, regular rate and rhythm without overt murmur Abdomen: Soft, nondistended, nontender. Negative for masses or hepatosplenomegaly. Negative for costovertebral tenderness. Pelvis: Stable nontender. Genitourinary: Deferred. Rectal: Deferred. Skin: Intact, warm, dry. No lesions or rashes noted. Extremities: Atraumatic, negative for cords or calf pain. Neurovascular unremarkable. Neuro: Awake, alert, oriented. Cranial nerves II through XII unremarkable. Cerebellum unremarkable. Motor and sensory unremarkable throughout. Exam nonfocal. Notes: Patient is a 25-year-old, otherwise healthy female, who presents to the ED today with concern of near syncope that started just prior to travel [place]. Upon arrival to the ED, patient is noted to be tachycardic 112's on exam, otherwise is vitally stable. When patient does sit up, her heart rate does go to 130s to 140s and expresses worsening of her near-syncope symptoms. Will obtain IV access and initiate a 20 cc/kg bolus of fluids, and obtain cardiac evaluation. See Dr. Garcia dictation for specific EKG interpretation. However, sinus tachycardia with a rate of 103 without signs of STEMI or ischemic changes. Dr. Garcia has assumed care of patient and will follow remaining diagnostics and disposition Diagnostics: EKG, CBC, CMP, UA, serum hCG, chest x-ray, troponin, orthostatic vitals Therapeutics: NS Prescription: Impression: Near syncope Plan: Definitive disposition and diagnosis as appropriate pending reevaluation and review of above. Course - Vital Signs Text/Narrative:: 0024 hours the patient has mild headache but feels somewhat better. She has ondansetron at home. She request discharge and I feel it is comfortable. Last Recorded V/S: Last Vital Signs Temp 36.3 C 11/13/20 20:52 Pulse 98 11/13/20 23:17 Resp 18 11/13/20 23:17 BP 104/62 11/13/20 23:17 Pulse Ox 98 11/13/20 23:17 Orthostatic Blood Pressure [ 123/78 Standing] Orthostatic Blood Pressure [ 123/78 Sitting] Orthostatic Blood Pressure [ 114/70 Supine] - Orders/Labs/Meds Orders: Active Orders 24 hr Category Date Time Status Cardiac Monitoring [RC] . DIRECTED Care 11/13/20 21:13 Active EKG 12 Lead [EKG Documentation Completion] [RC] STAT Care 11/13/20 20:59 Active Orthostatic Vital Signs [RC] ASDIRECTED Care 11/13/20 21:14 Active Sodium Chloride 0.9% [Normal Saline] 500 ml Med 11/13/20 21:15 Active IV STAT Medication Orders Sodium Chloride (Normal Saline) 500 mls @ 300 mls/hr IV STAT MACK Last Admin: 11/13/20 22:57 Dose: 300 mls/hr Documented by: MARYBEL Labs: Laboratory Tests 11/13/20 11/13/20 11/13/20 Range/Units 20:50 20:50 20:50 WBC 9.27 (4.0-11.0) K/uL RBC 4.53 (4.30-5.90) M/uL Hgb 14.4 (12.0-16.0) g/dL Hct 41.4 (36.0-46.0) % MCV 91.4 (80.0-98.0) fL MCH 31.8 (27.0-32.0) pg MCHC 34.8 (31.0-37.0) g/dL RDW Std Deviation 42.7 (28.0-62.0) fl RDW Coeff of Olu 13 (11.0-15.0) % Plt Count 238 (150-400) K/uL MPV 10.20 (7.40-12.00) fL Neut % (Auto) 82.8 H (48.0-80.0) % Lymph % (Auto) 9.9 L (16.0-40.0) % [place] % (Auto) 6.8 (0.0-15.0) % Eos % (Auto) 0.4 (0.0-7.0) % Baso % (Auto) 0.1 (0.0-1.5) % Neut # (Auto) 7.7 H (1.4-5.7) K/uL Lymph # (Auto) 0.9 (0.6-2.4) K/uL [place] # (Auto) 0.6 (0.0-0.8) K/uL Eos # (Auto) 0.0 (0.0-0.7) K/uL Baso # (Auto) 0.0 (0.0-0.1) K/uL Sodium 138 (136-145) mmol/L Potassium 3.5 (3.5-5.1) mmol/L Chloride 102 (98-107) mmol/L Carbon Dioxide 23.6 (21.0-32.0) mmol/L BUN 19 H (7.0-18.0) mg/dL Creatinine 1.1 H (0.6-1.0) mg/dL Est Cr Clr Drug Dosing 66.92 mL/min Estimated GFR (MDRD) > 60.0 ml/min Glucose 106 (74-106) mg/dL Calcium 8.6 (8.5-10.1) mg/dL Total Bilirubin 0.3 (0.2-1.0) mg/dL AST 13 L (15-37) IU/L ALT 24 (14-63) IU/L Alkaline Phosphatase 65 (46-116) U/L Troponin I < 0.050 (0.000-0.056) ng/mL Total Protein 8.2 (6.4-8.2) g/dL Albumin 4.0 (3.4-5.0) g/dL Globulin 4.2 H (2.6-4.0) g/dL Albumin/Globulin Ratio 1.0 (0.9-1.6) HCG, Qual NEGATIVE (NEG) Urine Color Urine Appearance Urine pH (5.0-8.0) Ur Specific [place] (1.001-1.035) Urine Protein (NEGATIVE) mg/dL Urine Glucose (UA) (NEGATIVE) mg/dL Urine Ketones (NEGATIVE) mg/dL Urine Occult Blood (NEGATIVE) Urine Nitrite (NEGATIVE) Urine Bilirubin (NEGATIVE) Urine Urobilinogen (<2.0) EU/dL Ur Leukocyte Esterase (NEGATIVE) 11/13/20 Range/Units 21:29 WBC (4.0-11.0) K/uL RBC (4.30-5.90) M/uL Hgb (12.0-16.0) g/dL Hct (36.0-46.0) % MCV (80.0-98.0) fL MCH (27.0-32.0) pg MCHC (31.0-37.0) g/dL RDW Std Deviation (28.0-62.0) fl RDW Coeff of Olu (11.0-15.0) % Plt Count (150-400) K/uL MPV (7.40-12.00) fL Neut % (Auto) (48.0-80.0) % Lymph % (Auto) (16.0-40.0) % [place] % (Auto) (0.0-15.0) % Eos % (Auto) (0.0-7.0) % Baso % (Auto) (0.0-1.5) % Neut # (Auto) (1.4-5.7) K/uL Lymph # (Auto) (0.6-2.4) K/uL [place] # (Auto) (0.0-0.8) K/uL Eos # (Auto) (0.0-0.7) K/uL Baso # (Auto) (0.0-0.1) K/uL Sodium (136-145) mmol/L Potassium (3.5-5.1) mmol/L Chloride (98-107) mmol/L Carbon Dioxide (21.0-32.0) mmol/L BUN (7.0-18.0) mg/dL Creatinine (0.6-1.0) mg/dL Est Cr Clr Drug Dosing mL/min Estimated GFR (MDRD) ml/min Glucose (74-106) mg/dL Calcium (8.5-10.1) mg/dL Total Bilirubin (0.2-1.0) mg/dL AST (15-37) IU/L ALT (14-63) IU/L Alkaline Phosphatase (46-116) U/L Troponin I (0.000-0.056) ng/mL Total Protein (6.4-8.2) g/dL Albumin (3.4-5.0) g/dL Globulin (2.6-4.0) g/dL Albumin/Globulin Ratio (0.9-1.6) HCG, Qual (NEG) Urine Color YELLOW Urine Appearance CLEAR Urine pH 6.0 (5.0-8.0) Ur Specific [place] 1.025 (1.001-1.035) Urine Protein NEGATIVE (NEGATIVE) mg/dL Urine Glucose (UA) NEGATIVE (NEGATIVE) mg/dL Urine Ketones NEGATIVE (NEGATIVE) mg/dL Urine Occult Blood NEGATIVE (NEGATIVE) Urine Nitrite NEGATIVE (NEGATIVE) Urine Bilirubin NEGATIVE (NEGATIVE) Urine Urobilinogen 0.2 (<2.0) EU/dL Ur Leukocyte Esterase NEGATIVE (NEGATIVE) Meds: Medications Generic Name Dose Route Start Last Admin Trade Name Freq PRN Reason Stop Dose Admin Sodium Chloride 500 mls @ 300 mls/hr 11/13/20 21:15 11/13/20 22:57 Normal Saline IV 300 mls/hr STAT MACK Administration Discontinued Medications Generic Name Dose Route Start Last Admin Trade Name Freq PRN Reason Stop Dose Admin Diazepam 2.5 mg 11/13/20 23:28 11/13/20 23:32 Diazepam 2 Mg Tab PO 11/13/20 23:29 2.5 mg ONETIME ONE Administration Sodium Chloride 1,000 mls @ 999 mls/hr 11/13/20 21:13 11/13/20 21:38 Normal Saline IV 11/13/20 22:13 999 mls/hr BOLUS ONE Administration Ketorolac Tromethamine 15 mg 11/13/20 23:27 11/13/20 23:33 Ketorolac 30 Mg/Ml Sdv IVPUSH 11/13/20 23:28 15 mg ONETIME ONE Administration Departure - Departure Time of Disposition: 00:26 Disposition: Home, Self-Care 01 Condition: Good Clinical Impression: Dehydration, Orthostasis, Muscle contraction headache, Back pain - Discharge Information Instructions: Orthostatic Hypotension, Acute Back Pain, Adult, Dehydration, Adult, [id number], General Headache Without Cause, [id number] Referrals: Moncho Michelle [Primary Care Provider] - Forms: ED Department Discharge Additional Instructions: [facility] - Primary Care [address] [place] [id number] [id number] The following information is given to patients seen in the emergency department who are being discharged to home. This information is to outline your options for follow-up care. We provide all patients seen in our emergency department with a follow-up referral. The need for follow-up, as well as the timing and circumstances, are variable depending upon the specifics of your emergency department visit. If you don't have a primary care physician on staff, we will provide you with a referral. We always advise you to contact your personal physician following an emergency department visit to inform them of the circumstance of the visit and for follow-up with them and/or the need for any referrals to a consulting specialist. The emergency department will also refer you to a specialist when appropriate. This referral assures that you have the opportunity for follow-up care with a specialist. All of these measure are taken in an effort to provide you with optimal care, which includes your follow-up. Under all circumstances we always encourage you to contact your private physician who remains a resource for coordinating your care. When calling for follow-up care, please make the office aware that this follow-up is from your recent emergency room visit. If for any reason you are refused follow-up, please contact the [facility] Emergency Department at and asked to speak to the emergency department charge nurse. Sepsis Event Note (ED) - Evaluation Sepsis Screening Result: No Definite Risk - Focused Exam Vital Signs: Vital Signs Temp Pulse Resp BP Pulse Ox 11/13/20 23:17 98 18 104/62 98 11/13/20 22:30 102 H 20 103/72 98 11/13/20 21:42 97 18 114/70 98 11/13/20 20:52 36.3 C 112 H 18 117/75 98 - My Orders Last 24 Hours: My Active Orders 11/13/20 20:59 EKG 12 Lead [EKG Documentation Completion] [RC] STAT - Assessment/Plan Last 24 Hours: My Active Orders 11/13/20 20:59 EKG 12 Lead [EKG Documentation Completion] [RC] STAT
[2020-11-14 00:54] VITALS: BP 111/65; PULSE 88
== END 2020-11-14 00:34 | disposition home or self-care (01) ==
LOC: MW.ED 20:36
DX: E86.0 Dehydration (principal); R55 Syncope and collapse; R51.9 Headache, unspecified; M54.9 Dorsalgia, unspecified; J45.909 Unspecified asthma, uncomplicated; Z88.7 Allergy status to serum and vaccine; Z79.899 Other long term (current) drug therapy
CPT/HCPCS: 36415; 71045; 80053; 81003; 84484; 84703; 85025; 93005; 96374; 99284; A9270; J1885; J7030; J7040

== ENCOUNTER 2021-05-30 07:26 | Emergency (ER) | payer BC, OTHER ==
--- NOTE | 2021-05-30 07:53 | EDM.PDOC ---
ED HPI GENERAL MEDICAL PROBLEM - General Chief Complaint: Respiratory Problem Stated Complaint: COVID SYMPTOMS Time Seen by Provider: 05/30/21 07:37 - History of Present Illness INITIAL COMMENTS - FREE TEXT/NARRATIVE: History of present illness: [] Patient got sick yesterday. She has had Covid last year. She does not think he has Covid because of that. She is trying to get currently. She is not vaccinated. She has body aches cough phlegm. She has a sore throat. She does not have much sinus congestion. When she had Covid before she lost control of her bladder and that has not happened this time. Patient is almost certainly viral and not septic. Review of systems: As per history of present illness and below otherwise all systems reviewed and negative. Past medical history: As per history of present illness and as reviewed below otherwise noncontributory. Surgical history: As per history of present illness and as reviewed below otherwise noncontributory. Social history: No reported history of drug or alcohol abuse. Family history: As per history of present illness and as reviewed below otherwise noncontributory. Physical exam: Constitutional - well developed, well-nourished and in no acute distress HEENT - normocephalic, no evidence of trauma - external nose and mouth normal - no mass in neck and no JVD - mucosae moist EYES - full EOM, PERRL, no icterus - no evidence of inflammation, injection, or drainage Respiratory - no respiratory distress, equal bilateral expansion, lungs clear to auscultation and no abnormal lung sounds Cardiovascular - Regular Rhythm with S1 and S2 appreciated and no murmur, gallop or rub. GI - abdomen soft without distension or organomegaly - normal bowel sounds - no guard or rebound Musculoskeletal no gross deformity of long bones or joints - no tenderness, swelling or edema Neurologic - Alert and oriented times four - CN II-XII grossly intact - motor sensory and coordination symmetrically normal Psychiatric - appropriate mood and affect with normal thought content Hematologic - No petechiae or purpura - mucosa appropriate color and sclera not pale - normal nail bed color and refill Integument - no rash or evidence of trauma - normal turgor Diagnostics: [] Therapeutics: [] Impression: [] Plan: [] Definitive disposition and diagnosis as appropriate pending reevaluation and review of above. General body aches Pain Score (Numeric/FACES): 8 - Related Data Allergies Allergy/AdvReac Type Severity Reaction Status Date / Time varicella virus vaccine live Allergy Rash Verified 05/30/21 08:57 Home Meds: Home Meds Oseltamivir [Tamiflu] 75 mg PO BID 5 Days #10 cap 05/30/21 [Rx] Past Medical History - Past Health History Medical/Surgical History: Denies Medical/Surgical History HEENT History: Reports: None Cardiovascular History: Reports: None Respiratory History: Reports: Asthma Other Respiratory History: sports induced asthma in high school Gastrointestinal History: Reports: None Genitourinary History: Reports: [employer] History: Reports: Musculoskeletal History: Reports: None Neurological History: Reports: None Psychiatric History: Reports: Depression Endocrine/Metabolic History: Reports: None Hematologic History: Reports: None Immunologic History: Reports: None Oncologic (Cancer) History: Reports: None Dermatologic History: Reports: None - Infectious Disease History Infectious Disease History: Reports: None, Novel Coronavirus - Past Surgical History Head Surgeries/Procedures: Reports: None HEENT Surgical History: Reports: Oral Surgery Other HEENT Surgeries/Procedures: 2012 wisdom teeth Social & Family History - Family History Family Medical History: No Pertinent Family History - Caffeine Use Caffeine Use: Reports: Coffee, Energy Drinks - Recreational Drug Use Recreational Drug Use: No ED ROS GENERAL - Review of Systems Review Of Systems: Comprehensive ROS is negative, except as noted in HPI. ED EXAM, GENERAL - Physical Exam Exam: See Below Free Text/Narrative:: My physical exam is in the HPI Course - Vital Signs Last Recorded V/S: Last Vital Signs Temp 38.5 C H 05/30/21 08:54 Pulse 120 H 05/30/21 09:22 Resp 16 05/30/21 09:22 BP 116/70 05/30/21 09:22 Pulse Ox 99 05/30/21 09:22 - Orders/Labs/Meds Labs: Laboratory Tests 05/30/21 05/30/21 Range/Units 07:42 08:02 Urine HCG, Qual POSITIVE (NEGATIVE) Influenza Type A RNA POSITIVE H (NEGATIVE) Influenza Type B RNA NEGATIVE (NEGATIVE) SARS-CoV-2 RNA ([facility]) NEGATIVE (NEGATIVE) Meds: Medications Discontinued Medications Generic Name Dose Route Start Last Admin Trade Name Freq PRN Reason Stop Dose Admin Acetaminophen 1,000 mg 05/30/21 08:47 05/30/21 08:54 Acetaminophen 500 Mg Tab PO 05/30/21 08:48 1,000 mg ONETIME ONE Administration - Re-Assessments/Exams Free Text/Narrative Re-Assessment/Exam: 05/30/21 09:09 Literature reviewed and treatment with oseltamivir benefit outweighs risk for young person in first trimester. Patient agreed to take the medicine and prescription sent. Departure - Departure Time of Disposition: 09:09 Disposition: Home, Self-Care 01 Condition: Good Clinical Impression: Influenza A, - Discharge Information Prescriptions: Oseltamivir [Tamiflu] 75 mg PO BID 5 Days #10 cap Instructions: Influenza, Adult, [id number], and Influenza [facility] - Forms: ED Department Discharge Additional Instructions: Prescription for Tamiflu went to [facility] pharmacy. [facility] [address] [place] [address] [place] [address] [facility] [address] [place] [id number] [id number] The following information is given to patients seen in the emergency department who are being discharged to home. This information is to outline your options for follow-up care. We provide all patients seen in our emergency department with a follow-up referral. The need for follow-up, as well as the timing and circumstances, are variable depending upon the specifics of your emergency department visit. If you don't have a primary care physician on staff, we will provide you with a referral. We always advise you to contact your personal physician following an emergency department visit to inform them of the circumstance of the visit and for follow-up with them and/or the need for any referrals to a consulting specialist. The emergency department will also refer you to a specialist when appropriate. This referral assures that you have the opportunity for follow-up care with a specialist. All of these measure are taken in an effort to provide you with optimal care, which includes your follow-up. Under all circumstances we always encourage you to contact your private physician who remains a resource for coordinating your care. When calling for follow-up care, please make the office aware that this follow-up is from your recent emergency room visit. If for any reason you are refused follow-up, please contact the [facility] Emergency Department at and asked to speak to the emergency department charge nurse. Sepsis Event Note (ED) - Evaluation Sepsis Screening Result: Possible Sepsis Risk - Focused Exam Vital Signs: Vital Signs Temp Temp Pulse Resp BP Pulse Ox 05/30/21 09:22 120 H 16 116/70 99 05/30/21 08:54 38.5 C H 05/30/21 08:44 38.5 C H 120 H 16 118/64 99 05/30/21 07:36 38.4 C H 112 H 18 132/69 99
[2021-05-30 08:44] VITALS: PULSE 120
[2021-05-30] MEDS ORDERED: Acetaminophen 500 MG Tab PO ONE (08:47)
[2021-05-30 08:54] LABS: CORONAVIRUS COVID-19 NAA NEGATIVE (NEGATIVE); INFLUENZA A NAA POSITIVE (NEGATIVE); INFLUENZA B NAA NEGATIVE (NEGATIVE)
[2021-05-30 09:23] VITALS: BP 116/70
== END 2021-05-30 09:24 | disposition home or self-care (01) ==
LOC: MW.ED 07:26
DX: O99.511 Diseases of the respiratory system complicating pregnancy, first trimester (principal); J10.1 Influenza due to other identified influenza virus with other respiratory manifestations; Z20.822 Contact with and (suspected) exposure to COVID-19; Z3A.00 Weeks of gestation of pregnancy not specified
CPT/HCPCS: 0240U; 81025; 99283; A9270

== ENCOUNTER 2022-01-01 17:01 | Emergency (ER) | payer BC, OTHER ==
[2022-01-01 17:35] VITALS: BP 107/56; PULSE 106
[2022-01-01] MEDS ORDERED: oxyCODONE 5 MG Tab PO ONE (19:40)
[2022-01-01] MEDS ORDERED: Lidocaine 5% Oint 35.44 GM Tube TOP STA (19:42)
[2022-01-01] MEDS ORDERED: Lidocaine/Epineph/Tetracaine 3 ML Syringe ONE (19:59)
[2022-01-01] MEDS ORDERED: Bupivacaine 0.25%/EPINEPHrine 1:200,000 10 ML SDV INJECT STA (20:10)
[2022-01-01] MEDS ORDERED: Lidocaine 1% with EPINEPHrine 1:100,000 20 ML MDV INJECT ONE (20:29)
== END 2022-01-01 21:35 | disposition home or self-care (01) ==
LOC: MW.ED 17:01
DX: O22.43 Hemorrhoids in pregnancy, third trimester (principal); Z3A.34 34 weeks gestation of pregnancy; Z88.7 Allergy status to serum and vaccine; Z86.16 Personal history of COVID-19
CPT/HCPCS: 46320; 99282; A9270; 46083; 99284

== ENCOUNTER 2022-01-02 20:23 | Emergency (ER) | payer BC, OTHER ==
[2022-01-02] MEDS ORDERED: Bupivacaine 0.25% 10 ML SDV INJECT ONE (21:30)
[2022-01-02 21:52] VITALS: BP 137/70; PULSE 88
== END 2022-01-02 21:57 | disposition still patient (30) ==
LOC: MW.ED 20:23
DX: O22.43 Hemorrhoids in pregnancy, third trimester (principal); O26.893 Other specified pregnancy related conditions, third trimester; R06.02 Shortness of breath; R42 Dizziness and giddiness; Z88.7 Allergy status to serum and vaccine; Z3A.34 34 weeks gestation of pregnancy
CPT/HCPCS: 36415; 59025; 80053; 81003; 85025; 93005; 99282; A9270; J3490; J7120; 99283

== ENCOUNTER 2022-01-05 15:02 | Observation (INO) | payer BC, OTHER ==
[2022-01-05] MEDS ORDERED: Sodium Chloride 0.9% 10 ML Syringe FLUSH PRN (15:44)
[2022-01-05] MEDS ORDERED: Sodium Chloride 0.9% 2.5 ML Syringe FLUSH PRN (15:44)
[2022-01-05] MEDS ORDERED: Ondansetron 4 MG/2 ML SDV IVPUSH PRN (15:44)
[2022-01-05] MEDS ORDERED: diphenhydrAMINE 50 MG/ML SDV IVPUSH PRN (15:44)
[2022-01-05] MEDS ORDERED: Sodium Chloride 0.9% 20 ML SDV IV PRN (15:44)
[2022-01-05] MEDS: HYDROmorphone 1 MG/ML Syringe IVPUSH PRN ×4 (16:08→23:06)
[2022-01-05] MEDS: Sodium Chloride 0.9% 1,000 ML IV SCH (16:12)
[2022-01-05] MEDS: Polyethylene Glycol 3350 Powder 17 GM Packet PO SCH (16:33)
[2022-01-05] MEDS: Acetaminophen/oxyCODONE 325-5 MG Tab PO PRN (19:00)
[2022-01-05] MEDS: Cyclobenzaprine 5 MG Tab PO SCH (21:54)
[2022-01-06] MEDS: Sodium Chloride 0.9% 1,000 ML IV SCH ×2 (00:04→08:13)
[2022-01-06] MEDS: Acetaminophen/oxyCODONE 325-5 MG Tab PO PRN ×3 (00:16→19:59)
[2022-01-06] MEDS: HYDROmorphone 1 MG/ML Syringe IVPUSH PRN ×8 (04:18→23:18)
[2022-01-06] MEDS: Cyclobenzaprine 5 MG Tab PO SCH ×4 (06:09→23:08)
[2022-01-06] MEDS: Polyethylene Glycol 3350 Powder 17 GM Packet PO SCH (08:11)
[2022-01-06] MEDS ORDERED: Naloxone 0.4 MG/ML SDV IVPUSH PRN (08:29)
[2022-01-06] MEDS ORDERED: Albuterol 0.083% 2.5 MG/3 ML Neb Soln NEB PRN (08:29)
[2022-01-06] MEDS ORDERED: Metoclopramide 10 MG/2 ML SDV IVPUSH PRN (08:29)
[2022-01-06] MEDS ORDERED: fentaNYL 50 MCG/ML SDV IVPUSH PRN (08:29)
[2022-01-06] MEDS ORDERED: Ondansetron 4 MG/2 ML SDV IVPUSH PRN (08:29)
[2022-01-06] MEDS ORDERED: HYDROmorphone 1 MG/ML Syringe IVPUSH PRN (08:29)
[2022-01-06] MEDS ORDERED: Chloroprocaine 10 MG/ML 5 ML Amp ONE (13:03)
[2022-01-06] MEDS ORDERED: propofoL 50 ML ONE (14:32)
[2022-01-06] MEDS ORDERED: fentaNYL 100 MCG/2 ML SDV ONE (14:37)
[2022-01-06] MEDS ORDERED: Lidocaine 2% 5 ML SDV ONE (14:37)
[2022-01-06] MEDS ORDERED: Lidocaine 2% Jelly 30 ML Tube ONE (15:25)
[2022-01-06] MEDS ORDERED: Bupivacaine 0.25% 30 ML SDV ONE (15:26)
[2022-01-06] MEDS ORDERED: Bupivacaine 0.5% 30 ML SDV ONE (16:11)
[2022-01-06] MEDS ORDERED: Phenylephrine HCl In 0.9% NaCl 1 MG/10 ML Vial ONE (16:41)
[2022-01-06] MEDS: cefOXitin 2 GM in Premix Bag 1 BAG IV SCH ×2 (19:46→20:38)
[2022-01-07] MEDS: Acetaminophen/oxyCODONE 325-5 MG Tab PO PRN ×4 (00:01→16:08)
[2022-01-07] MEDS: HYDROmorphone 1 MG/ML Syringe IVPUSH PRN ×5 (00:38→13:20)
[2022-01-07] MEDS: cefOXitin 2 GM in Premix Bag 1 BAG IV SCH ×3 (02:47→15:12)
[2022-01-07] MEDS: Cyclobenzaprine 5 MG Tab PO SCH (06:10)
[2022-01-07] MEDS: Polyethylene Glycol 3350 Powder 17 GM Packet PO SCH (09:38)
[2022-01-07 12:16] VITALS: BP 111/73; PULSE 98
[2022-01-07] MEDS ORDERED: Cyclobenzaprine 10 MG Tab PO SCH (14:00)
== END 2022-01-07 16:10 | disposition home or self-care (01) ==
LOC: MW.MS 15:02
PROVIDERS: ADMIT Surgery; ATTEND Surgery
DX: K64.5 Perianal venous thrombosis (principal); J45.909 Unspecified asthma, uncomplicated; F32.A Depression, unspecified; Z88.7 Allergy status to serum and vaccine; Z20.822 Contact with and (suspected) exposure to COVID-19; Z79.899 Other long term (current) drug therapy; Z79.51 Long term (current) use of inhaled steroids; Z79.83 Long term (current) use of bisphosphonates; Z86.16 Personal history of COVID-19; Z98.890 Other specified postprocedural states
CPT/HCPCS: 46260; 87635; 96365; 96375; 96376; A9270; G0378; G0379; J0694; J1170; J2400; J2704; J3010; J3490; J7030; 00902; U0002

== ENCOUNTER 2022-10-23 00:28 | Emergency (ER) | payer OTHER, BC ==
[2022-10-23 00:38] VITALS: BP 121/73
[2022-10-23] MEDS ORDERED: Ibuprofen 600 MG Tab PO ONE (00:48)
[2022-10-23] MEDS ORDERED: Acetaminophen/oxyCODONE 325-5 MG Tab PO ONE (00:48)
[2022-10-23] MEDS ORDERED: Bacitracin Oint 28.35 GM Tube TOP STA (00:49)
[2022-10-23 22:51] VITALS: PULSE 88
== END 2022-10-23 01:50 | disposition home or self-care (01) ==
LOC: MW.ED 00:28
DX: S93.401A Sprain of unspecified ligament of right ankle, initial encounter (principal); S50.812A Abrasion of left forearm, initial encounter; S50.811A Abrasion of right forearm, initial encounter; S30.810A Abrasion of lower back and pelvis, initial encounter; J45.909 Unspecified asthma, uncomplicated; Z86.16 Personal history of COVID-19; Z88.7 Allergy status to serum and vaccine; V29.99XA Rider (driver) (passenger) of other motorcycle injured in unspecified traffic accident, initial encounter
CPT/HCPCS: 73610; 99284; A9270; 99283

== ENCOUNTER 2023-02-28 09:27 | Day surgery (SDC) | payer OTHER ==
[~2023-02-28 09:27] MED LIST: Lactated Ringers 1,000 ML IV SCH; Sodium Chloride 0.9% 10 ML Syringe FLUSH PRN; Sodium Chloride 0.9% 2.5 ML Syringe FLUSH PRN; Sodium Chloride 0.9% 20 ML SDV IV PRN; propofoL 50 ML ONE
[2023-02-28] MEDS ORDERED: fentaNYL 100 MCG/2 ML SDV ONE (11:45)
[2023-02-28 12:10] VITALS: BP 90/55; PULSE 60
== END 2023-02-28 12:45 | disposition home or self-care (01) ==
LOC: MW.SDS 09:27
PROVIDERS: ATTEND Surgery
DX: K59.09 Other constipation (principal); K62.5 Hemorrhage of anus and rectum; K64.9 Unspecified hemorrhoids; J45.909 Unspecified asthma, uncomplicated; G43.909 Migraine, unspecified, not intractable, without status migrainosus; F41.0 Panic disorder [episodic paroxysmal anxiety]; F32.A Depression, unspecified; F43.10 Post-traumatic stress disorder, unspecified; F17.210 Nicotine dependence, cigarettes, uncomplicated; Z88.7 Allergy status to serum and vaccine; Z79.899 Other long term (current) drug therapy
CPT/HCPCS: 45380; 81025; J2704; J3010; J7120

== ENCOUNTER 2024-03-04 19:15 | Emergency (ER) | payer OTHER ==
[2024-03-04] MEDS: fentaNYL 50 MCG/ML SDV IVPUSH ONE (20:26)
[2024-03-04] MEDS: Sodium Chloride 0.9% 10 ML Syringe FLUSH PRN (20:26)
[2024-03-04] MEDS: Sodium Chloride 0.9% 2.5 ML Syringe FLUSH PRN (20:26)
[2024-03-04] MEDS: Sodium Chloride 0.9% 1,000 ML IV ONE (20:26)
[2024-03-04] MEDS: Ondansetron 4 MG/2 ML SDV IVPUSH ONE (20:26)
[2024-03-04 20:37] LABS: BASOPHILS ABSOLUTE AUTO 0.05 K/uL (0.00-0.20); BASOPHILS PERCENT AUTO 0.5 % (0.0-1.0); EOSINOPHILS ABSOLUTE AUTO 0.15 K/uL (0.00-0.45); EOSINOPHILS PERCENT AUTO 1.4 % (0.0-6.0); HEMATOCRIT 37.8 % (37.0-47.0); HEMOGLOBIN 12.9 g/dL (12.0-16.0); IMMATURE GRAN ABSOLUTE AUTO 0.01 K/uL (0.00-0.05); IMMATURE GRAN PERCENT AUTO 0.1 % (0.0-0.4); LYMPHOCYTES ABSOLUTE AUTO 3.76 K/uL (1.00-4.80); LYMPHOCYTES PERCENT AUTO 34.9 % (24.0-44.0); MEAN CORPUSCULAR HGB CONC 34.1 g/dL (32.0-36.0); MEAN CORPUSCULAR VOLUME 96.7 fL (83.0-99.0); MONOCYTES ABSOLUTE AUTO 0.75 K/uL (0.00-0.80); NEUTROPHILS ABSOLUTE AUTO 6.05 K/uL (1.80-7.70); NEUTROPHILS PERCENT AUTO 56.1 % (41.0-71.0); PLATELET COUNT,PLT 258 K/uL (150-400); RED BLOOD CELL COUNT 3.91 M/uL (4.10-5.30); WHITE BLOOD CELL COUNT,WBC 10.77 K/uL (3.9-11.3)
[2024-03-04 20:40] LABS: APPEARANCE,URINE CLEAR; BILIRUBIN,URINE NEGATIVE (NEGATIVE); COLOR,URINE YELLOW; GLUCOSE,URINE NEGATIVE (NEGATIVE); KETONES,URINE NEGATIVE (NEGATIVE); LEUKOCYTE ESTERASE,URINE NEGATIVE (NEGATIVE); NITRITE,URINE NEGATIVE (NEGATIVE); OCCULT BLOOD,URINE NEGATIVE (NEGATIVE); PROTEIN,URINE NEGATIVE (NEGATIVE); UROBILINOGEN,URINE 0.2 EU/dL (<2.0)
[2024-03-04 21:06] LABS: A/G RATIO 0.9 (0.9-1.6); ALBUMIN 3.5 g/dL (3.4-5.0); BILIRUBIN TOTAL 0.3 mg/dL (0.2-1.0); CALCIUM 8.5 mg/dL (8.5-10.1); CARBON DIOXIDE,CO2 25.3 mmol/L (21.0-32.0); EST CRCL DRUG DOSING (CG) 65.65 mL/min; POTASSIUM,K 3.9 mmol/L (3.5-5.1); PROTEIN TOTAL,TP 7.4 g/dL (6.4-8.2)
[2024-03-04] MEDS: Iopamidol 755 MG/ML 500 ML Multipack Bottle IVPUSH STA (21:31)
[2024-03-04] MEDS: Ketorolac 30 MG/ML SDV IVPUSH ONE (22:41)
[2024-03-04] MEDS: Morphine 4 MG/ML Syringe IVPUSH ONE (22:41)
[2024-03-04 22:47] VITALS: BP 119/80; PULSE 68
== END 2024-03-04 22:59 | disposition home or self-care (01) ==
LOC: MW.ED 19:15
DX: K62.5 Hemorrhage of anus and rectum (principal); R10.30 Lower abdominal pain, unspecified; Z79.899 Other long term (current) drug therapy; Z88.7 Allergy status to serum and vaccine
CPT/HCPCS: 36415; 74177; 80053; 81003; 84703; 85025; 96361; 96374; 96375; 99284; J1885; J2270; J2405; J3010; J3490; J7030; Q9967